=== PATIENT | female | born 1960 | race Caucasian/White ===

== ENCOUNTER → 2023-08-07 07:05 | Outpatient (REF) | payer OTHER, MEDICARE, SELFPAY | LOC: MRI 3T 07:05 | PROVIDERS: ATTENDING PHYSICIAN Orthopaedic Surgery Hand Surgery; FAMILY PHYSICIAN Internal Medicine | DX: S46.011A Strain of muscle(s) and tendon(s) of the rotator cuff of right shoulder, initial encounter (principal) | CPT/HCPCS: 73221 ==

== ENCOUNTER 2025-01-07 06:16 | Day surgery (SDC) | payer MEDICARE, OTHER, SELFPAY ==
[2025-01-07] VITALS (8 sets, daily range): BP systolic 111–122; BP diastolic 55–68; BMI 23.2
[2025-01-07] MEDS: NORMOSOL-R/PLASMALYTE-A 1000 IV (07:59)
== END 2025-01-07 11:50 | disposition home or self-care (01) ==
LOC: SDS 06:16
PROVIDERS: ATTENDING PHYSICIAN Otolaryngology
DX: H66.91 Otitis media, unspecified, right ear (principal); H90.2 Conductive hearing loss, unspecified
CPT/HCPCS: 69633

== ENCOUNTER 2025-02-28 06:26 | Day surgery (SDC) | payer MEDICARE, OTHER, SELFPAY | END 2025-02-28 09:46 | disposition home or self-care (01) | LOC: GI 06:26 | PROVIDERS: ATTENDING PHYSICIAN Internal Medicine Gastroenterology | DX: D12.3 Benign neoplasm of transverse colon (principal); K57.30 Diverticulosis of large intestine without perforation or abscess without bleeding; K64.8 Other hemorrhoids; R19.4 Change in bowel habit; R19.7 Diarrhea, unspecified; R63.4 Abnormal weight loss; Z80.0 Family history of malignant neoplasm of digestive organs | CPT/HCPCS: 45385; 45380; 88305 ==

== ENCOUNTER 2025-03-02 17:56 | Emergency (ER) | payer MEDICARE, OTHER, SELFPAY ==
[2025-03-02 17:58] VITALS: BP 134/73
--- NOTE | 2025-03-02 18:10 | ED.GENMED ---
History of Present Illness
<Jaquelin Arambula, INSTITUTION LIBRARIAN - Last Filed: 03/02/25 20:35>
General
Chief Complaint: Flank Pain
Source: patient and family
Exam Limitations: none
Time Seen by Provider: 03/02/25 18:09
Nursing documentation reviewed up to this point in time: agreed with
History of Present Illness
History of Present Illness:
64 yo female w h/o kidney stones, hypothyroid, thyroidectomy, cholecystectomy presents with intense right side colicky pain started at 5 AM, 2 days after she had a colonoscopy. She states she has been passing gas and having bowel movements since
the colonoscopy. She denies fever or chills. She points to left flank area to locate the pain. She has some nausea but has not vomited.
Past History
<Jaquelin Arambula, INSTITUTION LIBRARIAN - Last Filed: 03/02/25 20:35>
Past History
ED Past Medical History: Hypothyroidism
ED Past Surgical History: Tonsilectomy and Other (Thyroidectomy)
Social History
Tobacco: Non-smoker
Alcohol: None
Drug: None
Personal:
Living: with family
Employment: Employed
Family History
Family History: Negative Early CAD
Review of Systems
<Jaquelin Arambula, INSTITUTION LIBRARIAN - Last Filed: 03/02/25 20:35>
Review of Systems
Allergies reviewed?: Yes
All Other Systems: ROS reviewed and negative except as documented in HPI and ROS
Phy Exam
<Jaquelin Arambula, INSTITUTION LIBRARIAN - Last Filed: 03/02/25 20:35>
Physical Exam
Physical Exam:
GENERAL: No acute distress. A&Ox3.
CONSTITUTIONAL: Afebrile.
EYES: clear, conjunctivae normal
ENMT: moist mucus membranes
RESPIRATORY: Regular respirations, nonlabored, lungs clear.
CARDIOVASCULAR: Regular rate and rhythm, no murmurs, no rubs.
GI: Soft, nontender, normal BS, left flank tenderness to percussion, tender to palpation of left side.
MUSCULOSKELETAL: Moves with ease. Well perfused.
SKIN: Warm, dry, pink
PSYCH: Normal mood and affect. Well kept, interactive and appropriate
NEUROLOGIC: Awake, alert and oriented. No focal neurological deficits
Course
<Jaquelin Arambula, INSTITUTION LIBRARIAN - Last Filed: 03/02/25 20:35>
Orders/Labs/Results
Orders:
Orders
03/02/25 18:11
CT Abd/pelvis W Iv Cont Urgent
Comment:
Reason For Exam: R abd pain 2 d post colonoscopy
03/02/25 18:19
0.9% Sodium Chloride 1000 ml [Nss] 1,000 ml IV BOLUS
Ketorolac [Toradol] 15 mg IV NOW STA
Ondansetron Injectable [Zofran] 4 mg IV NOW STA
03/02/25 18:34
Complete Blood Count/With Diff Urgent
Comprehensive Metabolic Panel Urgent
Lipase Urgent
TSH Reflex To Free T4 Urgent
Comment: ADD ON
03/02/25 18:42
Urinalysis Reflex To Culture Urgent
Date Specimen was Collected: 03/02/25
Time Specimen was Collected: 18:36
Urine Microscopic Reflex Cult Urgent
Urine Culture Urgent
DORIS Source: U
Specimen Description:
Date Specimen was Collected: 03/02/25
Time Specimen was Collected: 18:36
03/02/25 19:51
Add On- LAB Urgent
Tests Added?: tsh reflex t4
Abnormal Lab Results
03/02/25 03/02/25
18:34 18:42
Lymphocytes % 17.3 L %
(20.5-51.1)
Eosinophils % 6.3 H %
(0-6)
Urine Bilirubin 1+ A
(Negative)
Leukocyte Esterase Rfl 1+ A
(Negative)
Urine Bacteria (Reflex) Many A
(Negative)
Urine Albumin (Reflex) 2+ A
(Neg - Trace)
03/02/25 18:34
03/02/25 18:34
Vital Signs
Initial and Last Documented VS:
Initial Vital Signs
Temp Pulse Resp BP Pulse Ox
97.6 F 89 18 134/73 97
03/02/25 17:58 03/02/25 17:58 03/02/25 17:58 03/02/25 17:58 03/02/25 17:58
Last Documented Vital Signs
Temp Pulse Resp BP Pulse Ox
97.6 F 76 16 107/50 100
03/02/25 17:58 03/02/25 20:05 03/02/25 20:05 03/02/25 20:05 03/02/25 20:05
<Kia Juarez MD - Last Filed: 03/02/25 20:29>
Orders/Labs/Results
Orders:
Orders
03/02/25 18:11
CT Abd/pelvis W Iv Cont Urgent
Comment:
Reason For Exam: R abd pain 2 d post colonoscopy
03/02/25 18:19
0.9% Sodium Chloride 1000 ml [Nss] 1,000 ml IV BOLUS
Ketorolac [Toradol] 15 mg IV NOW STA
Ondansetron Injectable [Zofran] 4 mg IV NOW STA
03/02/25 18:34
Complete Blood Count/With Diff Urgent
Comprehensive Metabolic Panel Urgent
Lipase Urgent
TSH Reflex To Free T4 Urgent
Comment: ADD ON
03/02/25 18:42
Urinalysis Reflex To Culture Urgent
Date Specimen was Collected: 03/02/25
Time Specimen was Collected: 18:36
Urine Microscopic Reflex Cult Urgent
Urine Culture Urgent
DORIS Source: U
Specimen Description:
Date Specimen was Collected: 03/02/25
Time Specimen was Collected: 18:36
03/02/25 19:51
Add On- LAB Urgent
Tests Added?: tsh reflex t4
Abnormal Lab Results
03/02/25 03/02/25
18:34 18:42
Lymphocytes % 17.3 L %
(20.5-51.1)
Eosinophils % 6.3 H %
(0-6)
Urine Bilirubin 1+ A
(Negative)
Leukocyte Esterase Rfl 1+ A
(Negative)
Urine Bacteria (Reflex) Many A
(Negative)
Urine Albumin (Reflex) 2+ A
(Neg - Trace)
03/02/25 18:34
03/02/25 18:34
Vital Signs
Initial and Last Documented VS:
Initial Vital Signs
Temp Pulse Resp BP Pulse Ox
97.6 F 89 18 134/73 97
03/02/25 17:58 03/02/25 17:58 03/02/25 17:58 03/02/25 17:58 03/02/25 17:58
Last Documented Vital Signs
Temp Pulse Resp BP Pulse Ox
97.6 F 76 16 107/50 100
03/02/25 17:58 03/02/25 20:05 03/02/25 20:05 03/02/25 20:05 03/02/25 20:05
<Jaquelin Arambula, INSTITUTION LIBRARIAN - Last Filed: 03/02/25 20:35>
MDM/Problems Addressed
Differential Diagnosis Includes:
Kidney stone, bowel perforation, splenic injury
MDM/Problems Addressed:
64 yo female w h/o kidney stones, hypothyroid, thyroidectomy, cholecystectomy presents with intense right side colicky pain started at 5 AM, 2 days after she had a colonoscopy. She states she has been passing gas and having bowel movements since
the colonoscopy. She denies fever or chills. She points to left flank area to locate the pain. She has some nausea but has not vomited.
CBC, CMP normal
Lipase normal
UA unremarkable
9:15 PM:
CT abdomen pelvis with IV contrast radiology report read: IMPRESSION:
There is mild edema and stranding adjacent to the distal descending/proximal sigmoid colon which is favored to represent acute diverticulitis. There is no evidence of free air to suggest perforation.
Prior cholecystectomy.
Small hiatal hernia.
Plan: Augmentin, GI follow up. Stable for discharge. To care of son.
<Jaquelin Arambula INSTITUTION LIBRARIAN - Last Filed: 03/02/25 20:35>
*Pulse Oximetry
SaO2: 97
Oxygen Mode of Delivery: Room air
Patient hypoxic: not evaluated
*Critical Care Note
Total Time (30-74mins, 75-104mins- exclusive of procedures): Not Applicable
ED Attending Note
<Jaquelin Arambula INSTITUTION LIBRARIAN - Last Filed: 03/02/25 20:35>
-
Portions of this chart may have been created with voice recognition software.� Occasional wrong word or��sound alike� substitutions may have occurred due to the inherent limitations of voice recognition software.
<Kia Juarez MD - Last Filed: 03/02/25 20:29>
ED Attending Note
Patient seen and examined by attending physician: Yes
I performed the substantive portion of visit, reviewed & personally made and approve the management plan that is documented in note by myself or QI.: Yes
ED Attending Note:
64-year-old female who was feeling generally well until earlier today when she developed pain in the left upper quadrant/flank area associated with nausea. Of note, patient had a colonoscopy on . She denies vomiting, fever, chills, lower
abdominal pain urinary symptoms, or other complaints. On exam, patient has mild to moderate tenderness to palpation in the left upper quadrant without rebound or guarding. Workup here noted, labs generally unremarkable, CT consistent with acute
diverticulitis, no recognition of abscess fistula perforation or other abnormalities. Case discussed with patient and her son who is bedside, plan is for outpatient antibiotics, understands importance of follow-up and reasons return to the ER.
Discharge Plan
Departure
Patient Disposition: Home (Routine Discharge)
Date of Disposition: 03/02/25
Time of Disposition: 20:26
Patient with high blood pressure during this ER visit?: Yes
Condition: Good
Discharge Problem:
Diverticulitis
Instructions: Diverticulitis, BLOOD PRESSURE
Prescriptions:
New
amoxicillin-pot clavulanate 875-125 mg tablet
1 tab PO BID Qty: 20 0RF
No Action
estradiol-norethindrone acet [Mimvey] 1-0.5 mg Tablet
1 tab PO HS
levothyroxine 150 mcg tablet
150 mcg PO HS
acetaminophen 325 mg Tablet
650 mg PO Q4HPRN PRN (Reason: mild pain) Qty: 1 0RF
colestipol 1 gram Tablet
1 g PO ONCE
ciprofloxacin HCl 0.3 % Drops
See Rx Instructions .ROUTE .COMPLEX 7 Days Qty: 2.5 0RF
Rx Instructions:
4 drops to Right ear BID x 7 days starting 01/29/25
cephalexin 500 mg capsule
500 mg PO TID 2 Days Qty: 6 0RF
Referrals:
Norris Walker MD [Family Provider, Internal Medicine] - Next open appointment
Activity Restrictions/Additional Instructions:
IF YOU DEVELOP INCREASING NEW OR PERSISTENT PAIN, FEVER, VOMITING, CHEST PAIN, SHORTNESS OF BREATH, OR OTHER WORRISOME SIGNS, PLEASE RETURN TO THE ER IMMEDIATELY!
Interventions
Interventions:
*Risk Screen - Suicide Last Done: 03/02/25 17:58
*General Assessment Last Done: 03/02/25 17:58
*Neglect/Abuse Screening Last Done: 03/02/25 17:58
*ED- Fall Risk Assessment Last Done: 03/02/25 18:26
*ED COVID-19 Vaccine History Last Done: 03/02/25 17:58
NH-Yaxacz-Pjgyumcbek Assessment Last Done: 03/02/25 18:26
ED-Female Genitourinary Assessment Last Done: 03/02/25 18:26
Discharge Date and Time
Print Language: [place]
[2025-03-02 18:25] VITALS: BMI 27.0
[2025-03-02] MEDS: ZOFRAN 4 MG IV (18:37)
[2025-03-02] MEDS: TORADOL 15 MG IV (18:37)
[2025-03-02] MEDS: NSS 1000 IV (18:44)
[2025-03-02 18:50] LABS: Hematocrit 38.5 % (37.0-47.0); Hemoglobin 12.9 g/dL (12.0-16.0); Mean Corp Hgb Conc. 33.5 g/dL (33.0-37.0); Mean Corpuscular Volume 89.1 fL (81.0-99.0); Nucleated Red Blood Cells % 0 %; Platelet Count 207 10^3/uL (130-400); Red Cell Dist. Width 13.6 % (11.5-14.5)
[2025-03-02 19:13] LABS: ALT (SGPT) 18 U/L (0-35); AST (SGOT) 19 U/L (14-36); Albumin 4.1 g/dl (3.5-5.0); Alkaline Phosphatase 46 U/L (38-126); Blood Urea Nitrogen 11 mg/dl (7-17); Calcium 8.8 mg/dl (8.4-10.2); Carbon Dioxide 28 mmol/L (22-30); Chloride 106 mmol/L (98-107); Estimated Creatinine Clearance 77 ml/min; Glucose 90 mg/dl (70-99); Lipase 73 U/L (23-300); Potassium 4.1 mmol/L (3.5-5.1); Sodium 138 mmol/L (135-145); Total Protein 6.6 g/dl (6.3-8.2); eGFR > 60.00
[2025-03-02 19:25] LABS: Urine Character Slightly Cloudy (Clear)
[2025-03-02 19:27] LABS: Urine Squamous Cell >30 /LPF (Few)
[2025-03-02 19:28] LABS: Urine Red Blood Cell 0-2 /HPF (0-2)
[2025-03-02 20:05] VITALS: BP 107/50
[2025-03-02] MEDS: AUGMENTIN 875 MG/125 MG 1 TABLET PO (20:32)
== END 2025-03-02 20:36 | disposition home or self-care (01) ==
LOC: EMR 17:56
PROVIDERS: Registered Nurse; EMERGENCY PHYSICIAN Emergency Medicine; FAMILY PHYSICIAN Internal Medicine
DX: K57.32 Diverticulitis of large intestine without perforation or abscess without bleeding (principal); K44.9 Diaphragmatic hernia without obstruction or gangrene; E89.0 Postprocedural hypothyroidism
CPT/HCPCS: 99284; 96374; 96375; 96361; 74177; 80053; 81003; 81015; 83690; 84439; 84443; 85025; 87086; Q9967